=== PATIENT | female | born 1940 | race American Indian/Alaskan Native ===

== ENCOUNTER 2016-10-09 11:53 | Day surgery (SDC) | payer MEDICARE ==
[~2016-10-09 11:53] MED LIST: XYLOCAINE MPF 2% ONE
--- NOTE | 2016-10-09 12:59 | Anesthesia Day of Surgery ---
Anesthesia Day of Surgery - Day of Surgery Patient Examined: Yes Patient H&P Reviewed: Yes Patient is NPO: Yes
--- NOTE | 2016-10-09 12:59 | Anesthesia Consultation ---
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
[2016-10-09] MEDS ORDERED: NACL 0.9% 1000 ML 1,000 ML IV SCH (13:00)
[2016-10-09] MEDS ORDERED: DIPRIVAN 10 MG/ML IV ONE ×2 (15:30)
[2016-10-09] MEDS ORDERED: XYLOCAINE MPF 2% ONE (15:45)
--- NOTE | 2016-10-09 16:17 | Operative Report ---
Operative Report Operative Report: Date of procedure: Procedure: Colonoscopy with multiple hot biopsy polypectomies and polyp ablation Attending physician: Fuad Knowles MD Wood Polisher: Fuad Knowles MD Indication: Patient is a 76-year-old female who presents for colorectal cancer screening. She has an underlying past history of colon polyps. A colonoscopy is done to evaluate patient so that treatment may be directed based on the findings. Consent: Informed consent was obtained after advising the patient and family regarding nature of this procedure, its indications, potential benefits as well as possible complications including but not limited to bleeding perforation and adverse reaction to medication, infection as well as other cardiopulmonary complications. An informed written and verbal consent was then obtained after due opportunity was provided for questions and answers. Monitoring: Patient was monitored continuously with pulse oximetry and electrocardiographic recordings as well as blood pressure recordings. Vital signs remained stable throughout this procedure with no untoward events. Preoperative assessment: Patient was assessed immediately prior to this procedure for capacity to tolerate monitored anesthesia care and moderate sedation as well as general anesthesia. Patient's ASA classification is 2, Mallampati class is 2, Hyomental distance is 3. Instrument: A Green Night[employer] Sleep video colonoscope Medications: Propofol given intravenously in divided doses. For details please refer to anesthesia records. Description of procedure: Patient was placed in the left lateral decubitus position after achieving sedation, a digital rectal examination was performed following which the colonoscope was introduced into the anal verge and advanced to the cecum which was identified by the cecal valve, the appendiceal orifice, as well as by the cecal strap and direct transillumination. The colonoscope was subsequently withdrawn with careful inspection of all mucosal surfaces. Patient tolerated this procedure well and was subsequently taken to the recovery room. The following findings were noted. Findings: Patient had densely adherent thick liquid stool in various sections of the colon. This was irrigated as much as possible to optimize colonic visualization. Patient has scattered diverticula in the ascending descending and sigmoid colon. Patient had 2 diminutive 5 mm polyps that were sessile in the transverse colon which were removed by hot biopsy polypectomy. She had diminutive polyp that was flat on the ileocecal valve which was ablated. The rest of the colon was normal. On the retroflex view at the anal verge, patient had internal hemorrhoids. Impression: Multiple polyps unless: Status post hot biopsy polypectomy. Ileocecal valve polyp status post ablation Diverticulosis Internal hemorrhoids. Retained stool Plan: Follow Pathology report. High-fiber diet Additional recommendations will be made, depending on the pathology report however at the very minimum, patient should repeat colonoscopy in 5 years.
--- NOTE | 2016-10-09 16:18 | Discharge Summary ---
Short Stay Discharge Plan Activity: advance as tolerated Weight Bearing Status: Weight Bear as Tolerated Diet: regular Follow up with: MADHURI DHALIWAL MD [Primary Care Provider] - 7 Days
[2016-10-09 16:41] VITALS: BP 155/69
--- NOTE | 2016-10-09 17:42 | Post Anesthesia Evaluation ---
- Post Anesthesia Evaluation Patient Participated: Yes Airway Patent: Yes Stable Respiratory Function: Yes Temp > 96.8F: Yes Pain Manageable: Yes Adequeate Hydration: Yes Anesthesia Complications: No Block Receding Appropriately: Not Applicable
== END 2016-10-09 11:54 | disposition home or self-care (01) ==
LOC: GIO 11:53
PROVIDERS: ATTEND Internal Medicine Gastroenterology
DX: Z12.11 Encounter for screening for malignant neoplasm of colon (principal); K63.5 Polyp of colon; K57.30 Diverticulosis of large intestine without perforation or abscess without bleeding; K64.8 Other hemorrhoids; F41.9 Anxiety disorder, unspecified; M19.90 Unspecified osteoarthritis, unspecified site; F32.9 Major depressive disorder, single episode, unspecified; I11.0 Hypertensive heart disease with heart failure; I50.9 Heart failure, unspecified; E78.00 Pure hypercholesterolemia, unspecified; Z87.891 Personal history of nicotine dependence; Z90.710 Acquired absence of both cervix and uterus; Z81.8 Family history of other mental and behavioral disorders; Z83.3 Family history of diabetes mellitus; Z80.9 Family history of malignant neoplasm, unspecified; Z86.73 Personal history of transient ischemic attack (TIA), and cerebral infarction without residual deficits
CPT/HCPCS: 45384; 45388; 88305; J2704